=== PATIENT | male | born 1980 | race Two or more races ===

== ENCOUNTER 2022-04-16 11:39 | Outpatient (REF) | payer OTHER, SELFPAY ==
[2022-04-16 11:55] LABS: MANUAL DIFF FLAG NO
[2022-04-16 12:25] LABS: Basophils Percent Auto 0.7 % (0-2); Hematocrit 41.2 % (42.0-52.0); Hemoglobin 13.5 g/dl (14.0-18.0); Lymphocytes Absolute Auto 1.3 X10*3/uL (1.2-4.9); Lymphocytes Percent Auto 44.4 % (20-40); Mean Corpuscular HGB Conc 32.8 g/dl (31.0-36.0); Mean Corpuscular Hemoglobin 26.3 pg (27.0-33.0); Mean Corpuscular Volume 80.3 fL (80.0-98.0); Mean Platelet Volume 11.7 fL (9.4-12.4); Monocytes Absolute Auto 0.3 X10*3/uL (0.1-1.2); Monocytes Percent Auto 9.6 % (2-11); Neutrophils Absolute Auto 1.3 x10*3/uL (2.0-8.3); Neutrophils Percent Auto 44.3 % (45-73); Platelet Count 184 X10*3/uL (160-400); Red Blood Count 5.13 X10*6/uL (4.60-5.80); Red Cell Distribution Width 11.9 % (11.0-16.0)
[2022-04-16 13:02] LABS: Alanine Aminotransferase 15 U/L (0-40); Albumin Level 4.3 g/dL (3.5-5.0); Alkaline Phosphatase 78 U/L (39-117); Anion Gap 11 (12-20); Aspartate Amino Transferase 22 U/L (5-37); Bilirubin Total 0.5 mg/dL (0.0-1.0); Blood Urea Nitrogen 16 mg/dL (9-16); Calcium 9.7 mg/dL (8.4-10.2); Carbon Dioxide 32 mmol/L (22-29); Chloride 103 mmol/L (96-108); Cholesterol 160 mg/dL; Estimated Glomerular Filt Rate > 60; Glucose Random 94 mg/dL (60-115); HDL Cholesterol 35 mg/dL; LDL Cholesterol Calculated 107 mg/dl; Potassium 4.5 mmol/L (3.3-5.1); Sodium 141 mmol/L (135-145); Total Protein 7.7 g/dL (6.5-8.0); Triglycerides 93 mg/dL
== END 2022-04-16 11:40 | disposition home or self-care (01) ==
LOC: HO.LAB 11:39
PROVIDERS: PCP Internal Medicine; Visit Provider Internal Medicine
DX: Z00.00 Encounter for general adult medical examination without abnormal findings (principal); E88.2 Lipomatosis, not elsewhere classified; Z13.31 Encounter for screening for depression
CPT/HCPCS: 36415; 80053; 80061; 85025

== ENCOUNTER → 2022-04-30 13:10 | Outpatient (BNVA) | payer OTHER, SELFPAY | PROVIDERS: PCP Internal Medicine; Referring Provider Internal Medicine; Visit Provider Surgery | DX: Z13.89 Encounter for screening for other disorder (principal) ==

== ENCOUNTER 2023-04-04 10:39 | Emergency (ER) | payer OTHER, SELFPAY ==
[2023-04-04 10:53] VITALS: BP 152/77; PULSE 72; RESP 14; TEMP 36.6; O2SAT 99; BMI 23.7
[2023-04-04 11:23] LABS: Appearance Urine Clear; Color Urine Yellow; Glucose Urine UA Negative (Negative); Leukocyte Esterase Urine Negative (Negative); Nitrite Urine Negative (Negative); PH 6.5 (5.0-9.0); Specific Gravity - Urine 1.015 (1.005-1.025); Urine Blood Negative (Negative); Urine Ketones Negative (Negative); Urine Protein Negative (Neg-Trace)
--- NOTE | 2023-04-04 12:36 | ED.MALEGU ---
HPI - Male Genitourinary General Chief complaint: Urogenital-Male Stated complaint: private area issues Time Seen by Provider: 04/04/23 12:18 Source: patient Mode of arrival: ambulatory Limitations: no limitations History of Present Illness HPI Narrative: 43 year old male with no significant pmhx presents to the ED for evaluation of groin itching and foul smelling urine xdays. Reports itching/discomfort to the skin folds of the groin. Denies lesions, penile discharge. Denies scrotal swelling or pain. Denies intercourse in the past few years and does not have concern for sexually transmitted infection. Denies dysuria, hematuria. Denies history of diabetes. Related Data Previous Rx's Medication Instructions Recorded clotrimazole 1 % topical cream 1 appl topical BID 2 weeks #30 04/04/23 grams Allergies Allergy/AdvReac Type Severity Reaction Status Date / Time No Known Allergies Allergy Verified 04/04/23 10:52 [facility], [facility] Past Medical History Attestation statement: The following information was validated with the patient. Source: old records reviewed and nursing notes reviewed Onset Date is defined in the Problem List Problems that require an onset date and time if occurred within 24 hrs of arrival to the ED Aortic Dissection and Rupture; Neurologic impairment; Cardiopulmonary Arrest; Endotracheal Intubation; Insertion or Replacement of Mechanical Circulatory Assist Device Medical History (Updated 04/05/23 @ 00:00 by Fabian Santana) Lipoma of neck Family History Family History Father Hypertension Diabetes Social History Social History Advance Directives: No Physical Exam Vital Signs: Vital Signs: Last Vital Signs Temp 98 F 04/04/23 10:53 Pulse 72 04/04/23 10:53 Resp 14 04/04/23 10:53 BP 152/77 H 04/04/23 10:53 Pulse Ox 99 04/04/23 10:53 O2 Del Method Room Air 04/04/23 10:53 BMI result Body Mass Index 23.7 Patient hypertensive, vitals otherwise WNL. Const: General: cooperative, healthy appearing, comfortable, no acute distress, alert and awake Orientation/consciousness: patient oriented x3 Limitations: no limitations HEENT: Head: Yes normal to inspection Eyes: General: appearance normal, both eyes and all related structures Conjunctivae: conjunctivae normal Sclerae: sclerae normal Pupils: Equal, round and reactive pupils present Neck: Neck: Yes normal visual inspection and Yes no lymphadenopathy Resp: Effort & Inspection: normal respiratory effort Auscultation: clear to auscultation bilaterally Cardio: Rate: regular rate Rhythm: regular rhythm Peripheral pulses: posterior tibial pulses present and dorsalis pedis present GI: Other: + no suprapubic tenderness Inspection: Yes normal to inspection Palpation (GI): Soft to palpation, nontender and no guarding : Other: Sarah RN in room to [facility] sensative exam. + circumcised. no penile lesions or ulcers. No palpable masses or areas of thickened sick. No penile discharge. Nontender to palpation. Testicles with normal lie, no noted edema or erythema. No palpable femoral or inguinal LAD. No palpable inguinal hernias. General: Yes no CVA tenderness Back/Spine/Pelvis: Back: no CVA tenderness Skin: General skin exam: no rashes or lesions noted Neuro: General: patient oriented x3, gait normal and moves all extremities Cranial nerves: Yes Equal, round and reactive pupils present Extrem: General: Yes normal to inspection and Yes full ROM Course Course Course Narrative: 1300-- Urine is negative for infection. Negative for gonorrhea and chlamydia. Exam is essentially unremarkable. There are question dark/ erythematous areas along the skin folds of the groin concerning for candidal infection vs intertrigo. No warmth or palpable fluctuance to suggest an abscess it sort. There is no concern for tiffanie's gangrene or bacterial infection. Will send clotrimazole cream to pharmacy. Patient has remained stable throughout ED visit today. Discussed strict return precautions. All questions answered at this time. Patient is agreeable with disposition and stable for discharge. Medical Decision Making Medical Decision Making [facility] Narrative: 43 year old male with no significant pmhx presents to the ED for evaluation of groin itching and foul smelling urine xdays. Patient hypertensive to 152/77, vitals otherwise WNL. Afebrile. Patient is nontoxic-appearing and in no acute distress. Lying on the exam bed comfortably. On sensitive exam, patient is circumcised. There are no penile lesions or ulcers. No palpable masses or areas of thickened sick. No penile discharge. Nontender to palpation. Testicles with normal lie, no noted edema or erythema. No palpable femoral or inguinal LAD. No palpable inguinal hernias. Concern for possible STI however less likely. Concern for UTI, candidal skin infection. Unlikely herpes, syphilis. No concern for fourniers gangrene, cellulitis. Plan for UA, STI testing, and re-evaluation. Differential Diagnosis Differential Diagnoses: The differential diagnosis associated with the presentation includes as above. Admission/Observation not indicated. Lab Data MDM Lab Attestation statement: I reviewed the patient's lab results. as above. Labs: Lab Results 04/04/23 Range/Units 11:14 Urine Color Yellow Urine Appearance Clear Urine pH 6.5 (5.0-9.0) Ur Specific [place] 1.015 (1.005-1.025) Urine Protein Negative (Neg-Trace) mg/dL Urine Glucose (UA) Negative (Negative) mg/dL Urine Ketones Negative (Negative) mg/dL Urine Blood Negative (Negative) Urine Nitrite Negative (Negative) Ur Leukocyte Esterase Negative (Negative) Chlam trachomat DNA PCR NOT DETECTED (Not Detect.) N.gonorrhoeae DNA (PCR) NOT DETECTED (Not Detect.) External Record Review External record reviewed: Inpatient record, Office record, Outpatient record, Prior outpatient labs, Prior outpatient radiology, Primary care record and Outside ED record Prescription Management I considered prescription management with: Other (antifungal) Social Determinants Patient?s care significantly limited by Social Determinants of Health including: Other Social Determinant of Health Critical Care Time Critical Care Time Critical Care Time: No Discharge Plan Discharge Clinical Impression: Pruritus of groin in male Patient Disposition: Home, Self-Care Instructions: Betamethasone/Clotrimazole (On the skin), Itchy Skin (ED) Additional Instructions: Your urine was negative for infection. You tested negative for gonorrhea and chlamydia. You likely have a possible fungal infection along the skin of your groin area. Clotrimazole is an antifungal cream that has been sent to your pharmacy. Apply this to the area twice a day as needed for the next 2 weeks. Make sure you are keeping the area clean and dry. If symptoms persist please follow-up with your primary care provider. If symptoms worsen, return to the emergency department. In the case of an emergency call 911. Shields orina fue negativa para infecci?n. Las pruebas de gonorrea y clamidia dieron negativo. Es probable que tenga kavin posible infecci?n por hongos en la piel del ?thierno de la karen. El clotrimazol es kavin crema antimic?tai que se ivan enviado a shields farmacia. Aplique esto en el ?thierno dos veces al d?a seg?n sea necesario wolfgang las pr?ximas 2 semanas. Aseg?rese de mantener el ?thierno limpia y seca. Si los s?ntomas persisten, alicja un seguimiento con shields proveedor de atenci?n primaria. Si los s?ntomas empeoran, regrese al departamento de emergencias. En robert de emergencia llame al 911. Prescriptions: New clotrimazole 1 % cream 1 appl topical BID 14 Days Qty: 30 0RF Referrals: Sarah Evangelista MD [Primary Care Provider] - Stand Alone Forms: Work/School Release Interventions: ED Discharge Assessment Last Done: 04/04/23 13:23 Discharge Date/Time: 04/04/23 13:24 Print Language: Wolof
[2023-04-04 12:49] LABS: CT PCR NOT DETECTED (Not Detect.); NG PCR NOT DETECTED (Not Detect.)
== END 2023-04-04 13:24 | disposition home or self-care (01) ==
PROVIDERS: Emergency Provider Emergency Medicine; PCP Internal Medicine
DX: L29.8 Other pruritus (principal); I10 Essential (primary) hypertension
CPT/HCPCS: 0353U; 81003; 99283

== ENCOUNTER 2023-07-03 18:43 | Emergency (ER) | payer OTHER, SELFPAY ==
--- NOTE | ~2023-07-03 | XR_ITS ---
EXAMINATION: XR ANKLE, LEFT XR FOOT, LEFT CLINICAL INFORMATION: Ankle and foot pain COMPARISON: None available. TECHNIQUE: AP, lateral, and mortise views of the left ankle. AP, lateral, and oblique views of the left foot. FINDINGS: No fracture. Alignment is anatomic. No erosions. Joint spaces are maintained. Soft tissues are normal. XR/XR foot LT min 3V IMPRESSION: Normal left ankle and foot.
--- NOTE | ~2023-07-03 | XR_ITS ---
EXAMINATION: XR ANKLE, LEFT XR FOOT, LEFT CLINICAL INFORMATION: Ankle and foot pain COMPARISON: None available. TECHNIQUE: AP, lateral, and mortise views of the left ankle. AP, lateral, and oblique views of the left foot. FINDINGS: No fracture. Alignment is anatomic. No erosions. Joint spaces are maintained. Soft tissues are normal. XR/XR ankle LT min 3V IMPRESSION: Normal left ankle and foot.
[2023-07-03 18:55] VITALS: BP 139/91; PULSE 70; RESP 18; TEMP 36.8; O2SAT 99; BMI 21.6
--- NOTE | 2023-07-03 18:57 | ED.LOWEXIN ---
HPI - Extremity Injury (Lower) General Chief Complaint: Extremity Injury, Lower Stated Complaint: foot injury 1 month ago at work Related Data Previous Rx's ?Medication ?Instructions ?Recorded clotrimazole 1 % topical cream 1 appl topical BID 2 weeks #30 04/04/23 grams Allergies Allergy/AdvReac Type Severity Reaction Status Date / Time No Known Allergies Allergy Verified 07/03/23 18:58 PMFSH Past Medical History Medical History (Updated 07/04/23 @ 14:07 by AIDE Patten) Lipoma of neck Family History Family History Father Hypertension Diabetes Social History Social History Advance Directives: No Advance Directives Information Provided: No Physical Exam Vital Signs: Vital Signs: Last Vital Signs Temp 98.2 F 07/03/23 22:21 Pulse 71 07/03/23 22:21 Resp 18 07/03/23 22:21 BP 147/82 H 07/03/23 22:21 Pulse Ox 99 07/03/23 22:21 O2 Del Method Room Air 07/03/23 22:21 BMI result Body Mass Index 21.6 Course Course Course Narrative: RME:? 43-year-old male here with atraumatic left foot/ankle pain. Admits to pain at the bottom of his left foot that began upon standing 1 month ago. Pain has persisted now radiating up into ankle. Reports pain on standing. No OTC meds at home. xrs ordered- likely plantar facsiitis Full HPI, ROS and PE to be performed by the primary ED provider. Reevaluation(s) Reevaluation #1: Patient left the ED without completing treatment. Discharge Plan Discharge Clinical Impression: Chronic pain in left foot Patient Disposition: Left W/O Completing Treatment Prescriptions: No Action clotrimazole 1 % cream 1 appl topical BID 14 Days Qty: 30 0RF Interventions: LWBS Worksheet Last Done: 07/03/23 23:52 Discharge Date/Time: 07/03/23 23:52
[2023-07-03 22:21] VITALS: BP 147/82; PULSE 71; RESP 18; TEMP 36.8; O2SAT 99
== END 2023-07-03 23:52 | disposition left against medical advice (07) ==
PROVIDERS: Emergency Provider Emergency Medicine; PCP Internal Medicine
DX: M79.672 Pain in left foot (principal); M25.572 Pain in left ankle and joints of left foot
CPT/HCPCS: 73610; 73630; 99281; 99283

== ENCOUNTER 2023-07-27 07:48 | Emergency (ER) | payer OTHER, SELFPAY ==
[2023-07-27 07:55] VITALS: BP 126/80; PULSE 65; RESP 19; TEMP 36.6; O2SAT 98; BMI 26.5
--- NOTE | 2023-07-27 08:13 | ED.LOWEXIN ---
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 Patient reports that initially he had injury while working. 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 He was seen in the emergency room on June 23 and had x-rays of the foot but he did not receive the results. He reports continued pain. Pain is worsened when he takes his 1st few steps in the morning or form a seated position. He is taking diclofenac and this does seem to help with the pain. He denies any associated weakness, numbness, tingling, swelling, redness of the foot. Related Data Previous Rx's ?Medication ?Instructions ?Recorded clotrimazole 1 % topical cream 1 appl topical BID 2 weeks #30 04/04/23 grams naproxen 500 mg tablet 500 mg PO BID PRN pain #30 tabs 07/27/23 Allergies Allergy/AdvReac Type Severity Reaction Status Date / Time No Known Allergies Allergy Verified 07/27/23 07:58 Review of Systems Review of Systems: Yes all other systems are reviewed and are negative Constitutional: Constitutional: Reports no additional constitutional complaints, Denies body ache(s), Denies chills, Denies fever(s), Denies headache(s) and Denies weakness Eyes: Eyes: Reports no additional eye complaints and Denies change in vision ENT: Reports system reviewed and no additional complaints, except as documented, Denies dizziness, Denies headache(s), Denies nasal congestion, Denies nasal discharge and Denies neck pain Cardiovascular: Cardiovascular: Reports no additional cardiovascular complaints, Denies chest pain, Denies leg edema and Denies dyspnea Respiratory: Respiratory: Reports no additional respiratory complaints, Denies cough and Denies dyspnea Gastrointestinal: Gastrointestinal: Reports no additional gastrointestinal complaints, Denies abdominal pain, Denies diarrhea, Denies nausea and Denies vomiting Genitourinary: Genitourinary: Denies urinary incontinence Musculoskeletal: Musculoskeletal: Reports no additional musculoskeletal complaints, Denies back pain, Reports arthralgias, Denies joint swelling, Denies limited range of motion, Denies neck pain, Denies numbness and Denies tingling Integumentary/Breasts: Skin/Breast: Reports system reviewed and no additional complaints, except as docu and Denies rash Neurologic: Reports system reviewed and no additional complaints, except as documented, Denies Abnormal speech present, Denies dizziness, Denies headache(s), Denies numbness, Denies tingling and Denies weakness PMFSH Past Medical History Attestation statement: The following information was validated with the patient. Source: old records reviewed and nursing notes reviewed Medical History Lipoma of neck Family History Family History Father Hypertension Diabetes Social History Social History Advance Directives: No Advance Directives Information Provided: Yes Physical Exam Vital Signs: Vital Signs: Last Vital Signs Temp 98 F 07/27/23 07:55 Pulse 65 07/27/23 07:55 Resp 19 07/27/23 07:55 BP 126/80 07/27/23 07:55 Pulse Ox 98 07/27/23 07:55 O2 Del Method Room Air 07/27/23 07:55 BMI result Body Mass Index 26.5 Const: General: cooperative, healthy appearing, comfortable and no acute distress Orientation/consciousness: patient oriented x3 Limitations: no limitations HEENT: Head: Yes normal to inspection Ears: hearing grossly normal bilaterally General nose exam: Normal external nose present Face and sinus: Yes normal facial exam Mouth: Normal oral and palatal mucosa present Throat: Yes posterior oropharynx normal Eyes: General: appearance normal, both eyes and all related structures Pupils: Equal, round and reactive pupils present Neck: Neck: Yes normal visual inspection Chest: Chest palpation & inspection: normal inspection of the chest Resp: Effort & Inspection: normal respiratory effort Auscultation: clear to auscultation bilaterally Cardio: Rate: regular rate Rhythm: regular rhythm Peripheral pulses: Peripheral pulses 2+ throughout GI: Inspection: Yes normal to inspection Palpation (GI): Soft to palpation and nontender Auscultation: normal bowel sounds Back/Spine/Pelvis: Thoracic/Lumbar Spine: thoracic and lumbar spine normal to inspection Skin: General skin exam: no rashes or lesions noted Neuro: General: patient oriented x3, no focal motor deficits and normal sensation to monofilament Cranial nerves: Yes Equal, round and reactive pupils present Cognition (Neuro): normal cognition Speech: No Abnormal speech present Gait exam (Neuro): Normal gait present Motor exam (neuro): 5/5 motor strength present throughout Extrem: Other: Pain on palpation to the left foot over the volar aspect along the arch of the foot and over the heel. There is no obvious swelling or redness. There is full active and passive range of motion of the left foot and ankle. There are 2+ DP and PT pulses. Normal sensation. General: Yes normal to inspection Medical Decision Making Medical Decision Making MDM Narrative: This is a 43-year-old male with no known medical history who presents to the ER with complaints of left foot pain for greater than 1 month.? Patient reports that initially he had injury while working.? 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 He was seen in the emergency room on June 23 and had x-rays of the foot but he did not receive the results.? He reports continued pain.? Pain is worsened when he takes his 1st few steps in the morning or form a seated position.? He is taking diclofenac and this does seem to help with the pain.? He denies any associated weakness, numbness, tingling, swelling, redness of the foot. Pain on palpation to the left foot over the volar aspect along the arch of the foot and over the heel.? There is no obvious swelling or redness.? There is full active and passive range of motion of the left foot and ankle.? There are 2+ DP and PT pulses.? Normal sensation. Patient had x-rays on June 23 which are normal. Seems more consistent with a strain. We reviewed home care. Recommend he follow up outpatient with occupational health for any continued symptoms Differential Diagnosis Differential Diagnoses: The differential diagnosis associated with the presentation includes Strain, sprain Low concern for fracture, dislocation or vascular injury Admission/Observation Consideration of admission/observation: Escalation of care including admission/observation considered Low concern for fracture, dislocation or vascular injury?requiring advanced imaging, urgent orthopedic consultation External Record Review External record reviewed: Outside ED record Prescription Management I considered prescription management with: Pain Medication Discharge Plan Discharge Clinical Impression: Strain of foot, left Patient Disposition: Home, Self-Care Instructions: Arthralgia (ED) Additional Instructions: Before walking apply heat to the foot. Apply a topical pain cream like Voltaren which you can buy [id number] at the drug store. Then perform gentle [id number] for 3-5 minutes. Buy inserts for your shoes Follow-up with [facility] at [phone] Prescriptions: New naproxen 500 mg tablet 500 mg PO BID PRN (Reason: pain) Qty: 30 0RF No Action clotrimazole 1 % cream 1 appl topical BID 14 Days Qty: 30 0RF Stand Alone Forms: Work/School Release Print Language: Upper Sorbian
[2023-07-27 08:54] VITALS: BP 126/80; PULSE 65; RESP 19; TEMP 36.6; O2SAT 98
== END 2023-07-27 08:54 | disposition home or self-care (01) ==
PROVIDERS: Emergency Provider Emergency Medicine; PCP Internal Medicine
DX: S96.912A Strain of unspecified muscle and tendon at ankle and foot level, left foot, initial encounter (principal); X50.1XXA Overexertion from prolonged static or awkward postures, initial encounter; Y93.89 Activity, other specified; Y92.512 Supermarket, store or market as the place of occurrence of the external cause; Y99.0 Civilian activity done for income or pay
CPT/HCPCS: 99282; 99283

== ENCOUNTER 2024-04-23 15:41 | Outpatient (REF) | payer OTHER, SELFPAY ==
[2024-04-23 15:54] LABS: MANUAL DIFF FLAG NO
[2024-04-23 16:53] LABS: Basophils Percent Auto 1.1 % (0-2); Eosinophils Percent Auto 1.1 % (0-4); Hematocrit 40.5 % (42.0-52.0); Hemoglobin 13.7 g/dl (14.0-18.0); Imm Gran Abs Auto 0.01 X10*3/uL (0.00-0.03); Imm Gran Pct Auto 0.3 % (0.0-0.4); Lymphocytes Absolute Auto 1.5 X10*3/uL (1.2-4.9); Lymphocytes Percent Auto 40.1 % (20-40); Mean Corpuscular HGB Conc 33.8 g/dl (31.0-36.0); Mean Corpuscular Hemoglobin 27.2 pg (27.0-33.0); Mean Corpuscular Volume 80.4 fL (80.0-98.0); Mean Platelet Volume 11.8 fL (9.4-12.4); Monocytes Absolute Auto 0.4 X10*3/uL (0.1-1.2); Monocytes Percent Auto 9.6 % (2-11); Neutrophils Absolute Auto 1.7 x10*3/uL (2.0-8.3); Neutrophils Percent Auto 47.8 % (45-73); Platelet Count 205 X10*3/uL (160-400); Red Blood Count 5.04 X10*6/uL (4.60-5.80); Red Cell Distribution Width 12.5 % (11.0-16.0); White Blood Count 3.6 X10*3/uL (4.8-10.8)
[2024-04-23 18:56] LABS: Alanine Aminotransferase 85 U/L (0-40); Albumin Level 4.2 g/dL (3.5-5.0); Alkaline Phosphatase 79 U/L (39-117); Anion Gap 9 (12-20); Aspartate Amino Transferase 40 U/L (5-37); Bilirubin Total 0.3 mg/dL (0.0-1.0); Blood Urea Nitrogen 17 mg/dL (9-16); Calcium 9.7 mg/dL (8.4-10.2); Carbon Dioxide 30 mmol/L (22-29); Chloride 102 mmol/L (96-108); Cholesterol 171 mg/dL (<200); Estimated Glomerular Filt Rate 53; Glucose Random 101 mg/dL (60-115); HDL Cholesterol 32 mg/dL (>40); Potassium 4.2 mmol/L (3.3-5.1); Sodium 137 mmol/L (135-145); Total Protein 8.7 g/dL (6.5-8.0); Triglycerides 426 mg/dL (<150)
== END 2024-04-23 15:42 | disposition home or self-care (01) ==
LOC: HO.LAB 15:41
PROVIDERS: PCP Internal Medicine; Visit Provider Internal Medicine
DX: Z00.00 Encounter for general adult medical examination without abnormal findings (principal); R06.02 Shortness of breath; R07.89 Other chest pain; Z13.31 Encounter for screening for depression
CPT/HCPCS: 36415; 80053; 80061; 85025